=== PATIENT | male | born 1960 | race Native Hawaiian/Other Pacific Islander ===

== ENCOUNTER 2019-04-10 21:57 | Outpatient (CLI) | payer BC | END 2019-04-10 22:14 | disposition short-term general hospital (02) | LOC: AMB 21:57 | DX: T67.5XXA Heat exhaustion, unspecified, initial encounter (principal); X30.XXXA Exposure to excessive natural heat, initial encounter; Y92.89 Other specified places as the place of occurrence of the external cause | CPT/HCPCS: A0425; A0427 ==

== ENCOUNTER 2019-04-10 22:16 | Emergency (ER) | payer BC ==
[~2019-04-10] VITALS: Ht 175.3 cm; Wt 85.3 kg
[2019-04-10 22:48] LABS: PLATELET COUNT 222 K/uL (142-355)
[2019-04-10 22:58] LABS: POTASSIUM 4.5 mmol/L (3.6-5.2); SODIUM 137 mmol/L (136-145)
[2019-04-10 23:14] LABS: PARTIAL THROMBOPLASTIN TIME 25.2 SECONDS (24.5-33.6)
[2019-04-11 01:10] VITALS: BP 136/70; TEMP 97.5
== END 2019-04-11 01:10 | disposition home or self-care (01) ==
LOC: ED 22:20
PROVIDERS: Hospitalist
DX: T67.5XXA Heat exhaustion, unspecified, initial encounter (principal); R00.1 Bradycardia, unspecified; X30.XXXA Exposure to excessive natural heat, initial encounter; Y92.89 Other specified places as the place of occurrence of the external cause
CPT/HCPCS: 36415; 80053; 80307; 81000; 82550; 83880; 84443; 84484; 85027; 85610; 85730; 87502; 87651; 93005; 96360; 96375; 99284; J2405